=== PATIENT | male | born 1960 | race Caucasian/White ===

== ENCOUNTER 2017-01-07 11:08 | Emergency (ER) | payer MEDICARE, OTHER ==
[~2017-01-07] VITALS: Ht 182.9 cm; Wt 99.8 kg
[~2017-01-07 11:08] MED LIST: ABILIFY10 MG PO; ABILIFY15 MG PO; ALBUTEROL SULF8.5 GM INH; AMOX TR-K CLV1 EAC1 PO; BENZTROPINE MESY1 MG PO; BUSPIRONE HCL10 MG PO; BUSPIRONE HCL5 MG PO; CAPTOPRIL12.5 MG PO; CHLORDIAZEPOXID25 MG PO; CHLORTHALIDONE25 MG PO; COGENTIN1 MG/ML PO; FLUOXETINE HCL20 MG PO; FLUOXETINE HCL40 MG PO; GEODON40 MG PO; HALDOL5 MG/1 ML PO; HALOPERIDOL0.5 MG PO; INVEGA SUS234 MG/1.5 IM; INVEGA SUS78 MG/0.5 IM; INVEGA3 MG PO; INVEGA9 MG PO; MAG-OXIDE400 MG PO; NICOTINE PATCH1 EAC1 TD; POTASSIUM CHLO20 ME1 PO; SPIRIVA18 MCG INH; SYMBICORT 16010.2 GM INH; THIAMINE HCL100 MG PO; VENTOLIN HFA18 GM INH; VITAMIN D250000 UNIT PO; VITAMIN D5000 UNIT PO; WELLBUTRIN XL150 MG PO; WELLBUTRIN XL300 MG PO; ZITHROMAX250 MG PO
--- OUTSIDE RECORDS SUMMARY | 2017-01-07 11:36 | XMS ---
Demographics + + + | Address | [address] | | | [address] | | | [place] [address] | + + + | Preferred Language | Unknown | + + + | Marital Status | Unknown | + + + | Amish Affiliation | Unknown | + + + | Race | Unknown | + + + | Ethnic Group | Unknown | + + + Author + + + | Author | [facility] | + + + | Organization | [facility] | + + + | Address | [address] | | | [place] [address] | + + + | Phone | | + + + Care Team Providers + + + + | Care Salesperson Household Appliances Name | Role | Phone | + + + + Unavailable | Unavailable | + + + + PROBLEMS +---------+ + + +--------+ + + | Type | Condition | ICD9-CM | [id number] | Onset | Condition | SNOMED | | | | Code | Code | Dates | Status | Code | +---------+ + + +--------+ + + | Problem | Hyponatrem | 276.1 | | | Active | [id number] | | | ia | | | | | | +---------+ + + +--------+ + + | Problem | Left hip | | M25.552 | | Active | 255279972 | | | pain | | | | | | +---------+ + + +--------+ + + | Problem | Peripheral | 782.3 | | | Active | 25569324 | | | edema | | | | | | +---------+ + + +--------+ + + | Problem | Hypomagnes | | E83.42 | | Active | 019048317 | | | emia | | | | | | +---------+ + + +--------+ + + | Problem | History of | Z87.898 | | | Active | 084801153 | | | alcohol | | | | | | | | abuse | | | | | | +---------+ + + +--------+ + + | Problem | Hyperlipid | | E78.5 | | Active | 42807198 | | | emia | | | | | | +---------+ + + +--------+ + + | Problem | Hypertensi | | I10 | | Active | 13748347 | | | on | | | | | | +---------+ + + +--------+ + + | 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 | | | | | | +---------+ + + +--------+ + + | Problem | Tinea | | B35.1 | | Active | 674883666 | | | unguium | | | | | | +---------+ + + +--------+ + + | Problem | Vitamin D | 268.9 | | | Active | 90978720 | | | deficiency | | | | | | +---------+ + + +--------+ + + | Problem | Anxiety | 300.00 | | | Active | 738486102 | | | disorder | | | | | | | | NOS | | | | | | +---------+ + + +--------+ + + | Problem | Hepatitis | B18.2 | | | Active | 475036714 | | | C, chronic | | | | | | +---------+ + + +--------+ + + | Problem | COPD | | J44.9 | | Active | 87579642 | | | (chronic | | | | | | | | obstructiv | | | | | | | | e | | | | | | | | pulmonary | | | | | | | | disease) | | | | | | +---------+ + + +--------+ + + | Problem | Hep C w/o | 070.54 | | | Active | 201973545 | | | coma, | | | | | | | | chronic | | | | | | +---------+ + + +--------+ + + | Problem | HCV | 795.79 | | | Active | 476623199 | | | antibody | | | | | | | | positive | | | | | | +---------+ + + +--------+ + + | Problem | Tobacco | 305.1 | | | Active | 031288151 | | | use | | | | | | +---------+ + + +--------+ + + | Problem | Heart | 785.2 | | | Active | 04562933 | | | murmur, | | | | | | | | systolic | | | | | | +---------+ + + +--------+ + + | Problem | Edema | 782.3 | | | Active | 86111582 | +---------+ + + +--------+ + + | Problem | Hypokalemi | 276.8 | | | Active | 68585284 | | | a | | | | | | +---------+ + + +--------+ + + ALLERGIES + + + + +--------+ | Substance | Reaction | Event Type | Date | Status | + + + + +--------+ | Seroquel | Lightheaded | Drug Allergy | Oct, | Active | + + + + +--------+ | Abilify | Unknown | Drug Allergy | Oct, | Active | + + + + +--------+ SOCIAL HISTORY No smoking Hx information available PLAN OF CARE + +---------+ | Activity | Details | + +---------+ +---+ | | +---+ + + + | Follow Up | 11/10/16 Reason:null | + + + VITAL SIGNS + + + + | Height | 69 in | 2016-10-27 | + + + + | Weight | 215.0 lbs | 2016-10-27 | + + + + | BMI | 31.75 kg/m2 | 2016-10-27 | + + + + | Temperature | 98.7 degrees Fahrenheit | 2016-10-27 | + + + + | Heart Rate | 82 /min | 2016-10-27 | + + + + | Blood pressure systolic | 111 mm Hg | 2016-10-27 | + + + + | Blood pressure diastolic | 77 mm Hg | 2016-10-27 | + + + + MEDICATIONS + + + + + + + +--------+ | Medicati | Instruct | Dosage | Frequenc | Start | End Date | Duration | Status | | on | ions | | y | Date | | | | + + + + + + + +--------+ | Slow-Mag | Orally | 1 tablet | 12h | 20 Oct, | 20 Oct, | 30 | Active | | | bid | | | 2016 | 2016 | day(s) | | | 71.5-119 | | | | | | | | | MG | | | | | | | | + + + + + + + +--------+ | Symbicor | Inhalati | 2 puffs | 12h | | Oct, | 30 days | Active | | t | on Twice | | | | 2017 | | | | 160-4.5 | a day | | | | | | | | MCG/ACT | | | | | | | | + + + + + + + +--------+ | Vitamin | | | | | | | Active | | D2 1999 | | | | | | | | | UNIT | | | | | | | | + + + + + + + +--------+ | Ventolin | Inhalati | 2 puffs | 4h | | | | Active | | HFA 108 | on every | as | | | | | | | (90 | 4 hrs | needed | | | | | | | Base) | | | | | | | | | MCG/ACT | | | | | | | | + + + + + + + +--------+ | BuPROPio | Orally | 1 tablet | 24h | | | | Active | | n HCl ER | Once a | in the | | | | | | | (XL) | day | morning | | | | | | | 150 MG | | | | | | | | + + + + + + + +--------+ | Vitamin | Orally | 2.5 | 24h | | | | Active | | B-1 100 | Once a | tablet | | | | | | | mg | day | | | | | | | + + + + + + + +--------+ | Drisdol | Orally | 1 | | | | | Active | | 55216 | Once a | capsule | | | | | | | UNIT | Week | | | | | | | + + + + + + + +--------+ | BuSpar | Orally | 1 tablet | 12h | | | | Active | | 10 mg | Twice a | | | | | | | | | day | | | | | | | + + + + + + + +--------+ | Fluoxeti | orally | 3 cap(s) | | | | | Active | | ne 20 mg | one time | | | | | | | | | daily | | | | | | | | | in am | | | | | | | + + + + + + + +--------+ | Penlac 8 | External | 1 drop | 24h | 27 Sep, | 27 Lukasz, | 10 | Active | | % | ly Once | to | | 2016 | 2017 | months | | | | a day | affected | | | | | | | | | | | | | | | | | | area-all | | | | | | | | | | | | | | | | | | toeneail | | | | | | + + + + + + + +--------+ | Invega | Intramus | 1.5 ml | | | | | Active | | Sustenna | cular | | | | | | | | 234 | Every 4 | | | | | | | | MG/1.5ML | weeks | | | | | | | + + + + + + + +--------+ RESULTS No Results PROCEDURES + + + + + | Procedure | Date Ordered | Related Diagnosis | Body Site | + + + + + | Doctor no charge/no | October 27, 2016 | | | | charge for visit | | | | + + + + + IMMUNIZATIONS No Known Immunizations"
--- OUTSIDE RECORDS SUMMARY | 2017-01-07 11:36 | XMS ---
Demographics + + + | Address | [address] | | | [address] | | | [place] [address] | + + + | Preferred Language | Unknown | + + + | Marital Status | Unknown | + + + | Sabianism Affiliation | Unknown | + + + | Race | Unknown | + + + | Ethnic Group | Unknown | + + + Author + + + | Author | [facility] | + + + | Organization | [facility] | + + + | Address | [address] | | | [place] [address] | + + + | Phone | | + + + Care Team Providers + + + + | Care Welding Machine Assembler Name | Role | Phone | + + + + Unavailable | Unavailable | + + + + PROBLEMS +---------+ + + +--------+ + + | Type | Condition | ICD9-CM | [id number] | Onset | Condition | SNOMED | | | | Code | Code | Dates | Status | Code | +---------+ + + +--------+ + + | Problem | Hyponatrem | 276.1 | | | Active | 46612276 | | | ia | | | | | | +---------+ + + +--------+ + + | Problem | Left hip | | M25.552 | | Active | 264972750 | | | pain | | | | | | +---------+ + + +--------+ + + | Problem | Peripheral | 782.3 | | | Active | 55703085 | | | edema | | | | | | +---------+ + + +--------+ + + | Problem | Hypomagnes | | E83.42 | | Active | 772377327 | | | emia | | | | | | +---------+ + + +--------+ + + | Problem | History of | Z87.898 | | | Active | 557351818 | | | alcohol | | | | | | | | abuse | | | | | | +---------+ + + +--------+ + + | Problem | Hyperlipid | | E78.5 | | Active | 06064258 | | | emia | | | | | | +---------+ + + +--------+ + + | Problem | Hypertensi | | I10 | | Active | 90847065 | | | on | | | | | | +---------+ + + +--------+ + + | Problem | 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 | | | Active | 51741949 | | | ctive | | | | | | | | disorder | | | | | | +---------+ + + +--------+ + + | Problem | Tinea | | B35.1 | | Active | 122732298 | | | unguium | | | | | | +---------+ + + +--------+ + + | Problem | Vitamin D | 268.9 | | | Active | 66445054 | | | deficiency | | | | | | +---------+ + + +--------+ + + | Problem | Anxiety | 300.00 | | | Active | 941805283 | | | disorder | | | | | | | | NOS | | | | | | +---------+ + + +--------+ + + | Problem | Hepatitis | B18.2 | | | Active | 928814824 | | | C, chronic | | | | | | +---------+ + + +--------+ + + | Problem | COPD | | J44.9 | | Active | 97964670 | | | (chronic | | | [...] | 070.54 | | | Active | 989608928 | | | coma, | | | | | | | | chronic | | | | | | +---------+ + + +--------+ + + | Problem | HCV | 795.79 | | | Active | 071133428 | | | antibody | | | | | | | | positive | | | | | | +---------+ + + +--------+ + + | Problem | Tobacco | 305.1 | | | Active | 389339973 | | | use | | | | | | +---------+ + + +--------+ + + | Problem | Heart | 785.2 | | | Active | 06735478 | | | murmur, | | | | | | | | systolic | | | | | | +---------+ + + +--------+ + + | Problem | Edema | 782.3 | | | Active | 23677501 | +---------+ + + +--------+ + + | Problem | Hypokalemi | 276.8 | | | Active | 77578487 | | | a | | | [...] + + + | Follow Up | 2 Weeks Reason:null | + + + VITAL SIGNS + + + + | Height | 69 in | 2016-11-10 | + + + + | Weight | 219.6 lbs | 2016-11-10 | + + + + | BMI | 32.43 kg/m2 | 2016-11-10 | + + + + | Heart Rate | 81 /min | 2016-11-10 | + + + + | Blood pressure systolic | 128 mm Hg | 2016-11-10 | + + + + | Blood pressure diastolic | 86 mm Hg | 2016-11-10 | + + + + MEDICATIONS + [...] | 1 tablet | 12h | 20 Nav, | 20 Oct, | 30 | Active | | | bid | | | 2017 | 2017 | day(s) | | | 71.5-119 | [...] | | | | Active | | 00827 | Once a | capsule | | | | | | | UNIT | Week | | | | | | | + + + + + + + +--------+ | Symbicor | Inhalati | 2 puffs | 12h | | 23 Lukasz, | 30 days | Active | | [...] | + + + + + | Office Visit, Est | November 10, 2016 | | | | Pt., Level 2 | | | | + + + + + | [facility] MED/CURRENT | November 10, 2016 | | | | MED MERGE | | | | + + + + + | DOC MEDS VERIFIED | November 10, 2016 | | | | W/PT OR RE | | | | + + + + + IMMUNIZATIONS No Known Immunizations"
--- OUTSIDE RECORDS SUMMARY | 2017-01-07 11:36 | XMS ---
Demographics + + + | Address | [address] | | | [address] | | | [place] [address] | + + + | Preferred Language | Unknown | + + + | Marital Status | Unknown | + + + | Latter-Day Affiliation | Unknown | + + + | Race | Unknown | + + + | Ethnic Group | Unknown | + + + Author + + + | Author | [facility] | + + + | Organization | [facility] | + + + | Address | [address] | | | [place] [address] | + + + | Phone | | + + + Care Team Providers + + + + | Care Unitizer Name | Role | Phone | + + + + Unavailable | Unavailable | + + + + PROBLEMS +---------+ + + +--------+ + + | Type | Condition | ICD9-CM | [id number] | Onset | Condition | SNOMED | | | | Code | Code | Dates | Status | Code | +---------+ + + +--------+ + + | Problem | Hyponatrem | 276.1 | | | Active | 05395668 | | | ia | | | | | | +---------+ + + +--------+ + + | Problem | Left hip | | M25.552 | | Active | 719923054 | | | pain | | | | | | +---------+ + + +--------+ + + | Problem | Peripheral | 782.3 | | | Active | 33012379 | | | edema | | | | | | +---------+ + + +--------+ + + | Problem | Hypomagnes | | E83.42 | | Active | 885179072 | | | emia | | | | | | +---------+ + + +--------+ + + | Problem | History of | Z87.898 | | | Active | 842375209 | | | alcohol | | | | | | | | abuse | | | | | | +---------+ + + +--------+ + + | Problem | Hyperlipid | | E78.5 | | Active | 58188461 | | | emia | | | | | | +---------+ + + +--------+ + + | Problem | Hypertensi | | I10 | | Active | 94365515 | | | on | | | | | | +---------+ + + +--------+ + + | Problem | 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 | | | Active | 08277197 | | | ctive | | | | | | | | disorder | | | | | | +---------+ + + +--------+ + + | Problem | Tinea | | B35.1 | | Active | 135204266 | | | unguium | | | | | | +---------+ + + +--------+ + + | Problem | Vitamin D | 268.9 | | | Active | 28651808 | | | deficiency | | | | | | +---------+ + + +--------+ + + | Problem | Anxiety | 300.00 | | | Active | 731814379 | | | disorder | | | | | | | | NOS | | | | | | +---------+ + + +--------+ + + | Problem | Hepatitis | B18.2 | | | Active | 891433952 | | | C, chronic | | | | | | +---------+ + + +--------+ + + | Problem | COPD | | J44.9 | | Active | 63806488 | | | (chronic | | | [...] | 070.54 | | | Active | 213633752 | | | coma, | | | | | | | | chronic | | | | | | +---------+ + + +--------+ + + | Problem | HCV | 795.79 | | | Active | 153006937 | | | antibody | | | | | | | | positive | | | | | | +---------+ + + +--------+ + + | Problem | Tobacco | 305.1 | | | Active | 107303668 | | | use | | | | | | +---------+ + + +--------+ + + | Problem | Heart | 785.2 | | | Active | 58026882 | | | murmur, | | | | | | | | systolic | | | | | | +---------+ + + +--------+ + + | Problem | Edema | 782.3 | | | Active | 70380678 | +---------+ + + +--------+ + + | Problem | Hypokalemi | 276.8 | | | Active | 95503186 | | | a | | | | | | +---------+ + + +--------+ + + ALLERGIES + + + + +--------+ | Substance | Reaction | Event Type | Date | Status | + + + + +--------+ | Seroquel | Lightheaded | Drug Allergy | Dec, | Active | + + + + +--------+ | Abilify | Unknown | Drug Allergy | Dec, | Active | + + + + +--------+ SOCIAL HISTORY No smoking Hx information available PLAN OF CARE + +---------+ | Activity | Details | + +---------+ +---+ | | +---+ + + + | Follow Up | prn Reason:null | + + + VITAL SIGNS + + + + | Height | 69 in | 2016-12-08 | + + + + | Weight | 225 lbs | 2016-12-08 | + + + + | BMI | 33.22 kg/m2 | 2016-12-08 | + + + + | Temperature | 98.6 degrees Fahrenheit | 2016-12-08 | + + + + | Heart Rate | 78 /min | 2016-12-08 | + + + + | Blood pressure systolic | 124 mm Hg | 2016-12-08 | + + + + | Blood pressure diastolic | 83 mm Hg | 2016-12-08 | + + + + MEDICATIONS + + + + +--------+ + +--------+ | Medicati | Instruct | Dosage | Frequenc | Start | End Date | Duration | Status | | on | ions | | y | Date | | | | + + + + +--------+ + +--------+ | BuSpar | Orally | 1 tablet | 12h | | | | Active | | 10 mg | Twice a | | | | | | | | | day | | | | | | | + + + + +--------+ + +--------+ | Vitamin | | | | | | | Active | | D2 2000 | | | | | | | | | UNIT | | | | | | | | + + + + +--------+ + +--------+ | BuPROPio | Orally | 1 tablet | 24h | | | | Active | | n HCl ER | Once a | in the | | | | | | | (XL) | day | morning | | | | | | | 150 MG | | | | | | | | + + + + +--------+ + +--------+ | Invega | Intramus | 1.5 ml | | | | | Active | | Sustenna | cular | | | | | | | | 234 | Every 4 | | | | | | | | MG/1.5ML | weeks | | | | | | | + + + + +--------+ + +--------+ | Fluoxeti | orally | 3 cap(s) | | | | | Active | | ne 20 mg | one time | | | | | | | | | daily | | | | | | | | | in am | | | | | | | + + + + +--------+ + +--------+ | Vitamin | Orally | 2.5 | 24h | | | | Active | | B-1 100 | Once a | tablet | | | | | | | mg | day | | | | | | | + + + + +--------+ + +--------+ | Ventolin | Inhalati | [...] | | | + + + + +--------+ + +--------+ RESULTS No Results PROCEDURES + + + + + | Procedure | Date Ordered | Related Diagnosis | Body Site | + + + + + | Office Visit, Est | Dec 08, 2016 | | | | Pt., Level 2 | | | | + + + + + | [facility] MED/CURRENT | Dec 08, 2016 | | | | MED MERGE | | | | + + + + + | DOC MEDS VERIFIED | Dec 08, 2016 | | | | W/PT OR RE | | | | + + + + + IMMUNIZATIONS No Known Immunizations"
--- OUTSIDE RECORDS SUMMARY | 2017-01-07 11:36 | XMS ---
Demographics + + + | Address | [address] | | | [address] | | | [place] [address] | + + + | Preferred Language | Unknown | + + + | Marital Status | Unknown | + + + | Restoration Affiliation | Unknown | + + + | Race | Unknown | + + + | Ethnic Group | Unknown | + + + Author + + + | Author | [facility] | + + + | Organization | [facility] | + + + | Address | [address] | | | [place] [address] | + + + | Phone | | + + + Care Team Providers + + + + | Care Nuclear Radiologist Name | Role | Phone | + + + + Unavailable | Unavailable | + + + + PROBLEMS +---------+ + + +--------+ + + | Type | Condition | ICD9-CM | [id number] | Onset | Condition | SNOMED | | | | Code | Code | Dates | Status | Code | +---------+ + + +--------+ + + | Problem | Hyponatrem | 276.1 | | | Active | 97169010 | | | ia | | | | | | +---------+ + + +--------+ + + | Problem | Left hip | | M25.552 | | Active | 280497092 | | | pain | | | | | | +---------+ + + +--------+ + + | Problem | Peripheral | 782.3 | | | Active | 82932144 | | | edema | | | | | | +---------+ + + +--------+ + + | Problem | Hypomagnes | | E83.42 | | Active | 791324221 | | | emia | | | | | | +---------+ + + +--------+ + + | Problem | History of | Z87.898 | | | Active | 481714458 | | | alcohol | | | | | | | | abuse | | | | | | +---------+ + + +--------+ + + | Problem | Hyperlipid | | E78.5 | | Active | 98989202 | | | emia | | | | | | +---------+ + + +--------+ + + | Problem | Hypertensi | | I10 | | Active | 31257992 | | | on | | | | | | +---------+ + + +--------+ + + | Problem | 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 | | | Active | 76561414 | | | ctive | | | | | | | | disorder | | | | | | +---------+ + + +--------+ + + | Problem | Tinea | | B35.1 | | Active | 108123615 | | | unguium | | | | | | +---------+ + + +--------+ + + | Problem | Vitamin D | 268.9 | | | Active | 12386776 | | | deficiency | | | | | | +---------+ + + +--------+ + + | Problem | Anxiety | 300.00 | | | Active | 234795156 | | | disorder | | | | | | | | NOS | | | | | | +---------+ + + +--------+ + + | Problem | Hepatitis | B18.2 | | | Active | 635583431 | | | C, chronic | | | | | | +---------+ + + +--------+ + + | Problem | COPD | | J44.9 | | Active | 30447568 | | | (chronic | | | [...] | 070.54 | | | Active | 127595382 | | | coma, | | | | | | | | chronic | | | | | | +---------+ + + +--------+ + + | Problem | HCV | 795.79 | | | Active | 299228188 | | | antibody | | | | | | | | positive | | | | | | +---------+ + + +--------+ + + | Problem | Tobacco | 305.1 | | | Active | 420286643 | | | use | | | | | | +---------+ + + +--------+ + + | Problem | Heart | 785.2 | | | Active | 22584049 | | | murmur, | | | | | | | | systolic | | | | | | +---------+ + + +--------+ + + | Problem | Edema | 782.3 | | | Active | 71858548 | +---------+ + + +--------+ + + | Problem | Hypokalemi | 276.8 | | | Active | 02920745 | | | a | | | [...] 2 Weeks Reason:null | + + + | Pending Test | Basic Metabolic Panel | + + + | Pending Test | Magnesium | + + + VITAL SIGNS + + + + | Height | 69 in | 2016-11-24 | + + + + | Weight | 216 lbs | 2016-11-24 | + + + + | BMI | 31.89 kg/m2 | 2016-11-24 | + + + + | Temperature | 99.2 degrees Fahrenheit | 2016-11-24 | + + + + | Heart Rate | 98 /min | 2016-11-24 | + + + + | Blood pressure systolic | 136 mm Hg | 2016-11-24 | + + + + | Blood pressure diastolic | 88 mm Hg | 2016-11-24 | + + + + MEDICATIONS + [...] | | | | Active | | [address]88 | Once a | capsule | | [...] + | Office Visit, Est | November 24, 2016 | | | | Pt., Level 2 | | | | + + + + + | [facility] MED/CURRENT | November 24, 2016 | | | | MED MERGE | | | | + + + + + | DOC MEDS VERIFIED | November 24, 2016 | | | | W/PT OR RE | | | | + + + + + IMMUNIZATIONS No Known Immunizations"
--- NOTE | 2017-01-07 14:31 | EKG ---
[facility] [address] [place], [place] [address] Signed Normal sinus rhythm Normal ECG When compared with ECG of 16-SEP-2016 04:24, No significant change was found Confirmed by JERMAINE JOHNS MD ([id number]) on 01/07/2017 2:30:55 PM Electronically Signed By: JERMAINE JOHNS MD 01/07/17 1431 PATIENT NAME: GONZALO NOEL Electrocardiogram DATE OF : 58 PHYSICIAN: JERMAINE JOHNS MD REPORT #: [id number] REPORT IS CONFIDENTIAL AND NOT TO BE RELEASED WITHOUT AUTHORIZATION
== END 2017-01-07 13:10 | disposition home or self-care (01) ==
LOC: ED 11:08
DX: S09.90XA Unspecified injury of head, initial encounter (principal); F10.10 Alcohol abuse, uncomplicated; F20.9 Schizophrenia, unspecified; I10 Essential (primary) hypertension; J44.9 Chronic obstructive pulmonary disease, unspecified; F17.200 Nicotine dependence, unspecified, uncomplicated; Z88.8 Allergy status to other drugs, medicaments and biological substances; Z79.899 Other long term (current) drug therapy; W22.8XXA Striking against or struck by other objects, initial encounter; W18.30XA Fall on same level, unspecified, initial encounter
CPT/HCPCS: 70450; 72125; 80053; 84484; 85025; 93005; 93010; 99284; G0480

== ENCOUNTER 2017-03-07 12:15 | Emergency (ER) | payer MEDICARE, OTHER ==
[~2017-03-07] VITALS: Ht 182.9 cm; Wt 104.3 kg
== END 2017-03-07 15:29 | disposition home or self-care (01) ==
LOC: ED 12:15
DX: F10.129 Alcohol abuse with intoxication, unspecified (principal); I10 Essential (primary) hypertension; J44.9 Chronic obstructive pulmonary disease, unspecified; F20.9 Schizophrenia, unspecified; F17.200 Nicotine dependence, unspecified, uncomplicated; Z88.8 Allergy status to other drugs, medicaments and biological substances; Z79.899 Other long term (current) drug therapy
CPT/HCPCS: 71010; 80053; 81001; 85025; 94640; 96360; 99283; G0480; J7030

== ENCOUNTER 2017-03-22 13:06 | Emergency (ER) | payer MEDICARE, OTHER ==
[~2017-03-22] VITALS: Ht 182.9 cm; Wt 104.3 kg
== END 2017-03-22 13:25 | disposition home or self-care (01) ==
LOC: ED 13:06
DX: M79.671 Pain in right foot (principal); Z00.8 Encounter for other general examination